=== PATIENT | female | born 1970 | race African-American/Black ===

== ENCOUNTER 2017-11-17 06:31 | Emergency (ER) | payer BC, MEDICAID ==
[~2017-11-17] VITALS: Ht 154.9 cm; Wt 70.0 kg
[2017-11-17] MEDS ORDERED: ASPIRIN 81MG TABLET PO ONE (06:45)
[2017-11-17 06:58] LABS: INR 1.1
[2017-11-17 07:02] LABS: CHLORIDE 104 mEq/L (98-107)
[2017-11-17 07:03] LABS: BASOPHILS % 0.3 % (0.0-2.0); EOSINOPHILS % 0.8 % (0.0-5.0); HEMATOCRIT. 44.1 % (36.0-48.0); HEMOGLOBIN. 14.7 g/dL (12.0-16.0); LYMPHOCYTES % 11.9 % (20.0-50.0); MEAN CORPUSCULAR HEMOGLOBIN 25.7 pg (28.0-32.0); MEAN CORPUSCULAR VOLUME 77.3 fL (81.0-99.0); MEAN PLATELET VOLUME 8.6 fl (7.4-10.4); MONOCYTES % 8.1 % (2.0-8.0); NEUTROPHILS % 78.9 % (40.0-76.0); PLATELET 342 x1000/uL (130-400); RED BLOOD CELL COUNT 5.71 mill/uL (4.2-5.4); RED CELL DISTRIBUTION WIDTH 15.6 % (11.6-14.6)
[2017-11-17 07:05] VITALS: BP 140/92
[2017-11-17] MEDS ORDERED: NITROGLYCERIN 0.4MG TABLET SL SL PRN (07:15)
== END 2017-11-17 07:23 | disposition short-term general hospital (02) ==
LOC: ER 06:36
DX: I21.09 ST elevation (STEMI) myocardial infarction involving other coronary artery of anterior wall (principal); D72.829 Elevated white blood cell count, unspecified; R03.0 Elevated blood-pressure reading, without diagnosis of hypertension; Z82.49 Family history of ischemic heart disease and other diseases of the circulatory system
CPT/HCPCS: 36415; 71045; 80053; 83880; 84484; 85025; 85610; 93005; 99285